=== PATIENT | female | born 1965 | race Caucasian/White ===

== ENCOUNTER → 2016-07-31 | Outpatient (CLI) | payer BC ==
[~2016-07-31] MED LIST: ATIVAN0.5 MG PO; BACTROBAN2% TP; CLARITIN10 MG PO; COMBIVENT1 ARO IH; CORTISPORIN 1%-10 M1 OT; DARVOCET N 1001 TAB PO; DAYPRO600 M1 PO; EES400 MG PO; HYDROCODONE BIT1 T11 PO; KEFLEX500 MG PO; LEVAQUIN750 M1 PO; MEDROL DOSEPAK4 MG PO; MOTRIN800 MG PO; PREDNISONE10 MG PO; ROBITUSSIN AC 110 ML PO; ULTRAM50 MG PO; VENTOLIN H0.09 MG/AC INH; ZITHROMAX Z PA250 MG PO
== END | disposition home or self-care (01) ==
LOC: US 02:23
DX: Z12.31 Encounter for screening mammogram for malignant neoplasm of breast (principal); R10.30 Lower abdominal pain, unspecified

== ENCOUNTER 2016-09-03 07:50 | Emergency (ER) | payer BC ==
[~2016-09-03] VITALS: Ht 162.5 cm; Wt 72.6 kg
[2016-09-03 08:26] LABS: BASO # 0.1 10*3/uL (0.0-0.1); BASO % 0.5 % (0.0-1.0); EOS % 0.3 % (1.0-4.0); HEMATOCRIT 49.7 % (37.0-47.0); LYMPH # 0.9 10*3/uL (1.3-4.4); LYMPH % 7.4 % (27.0-41.0); MEAN CELL VOLUME 99.2 fl (81.0-99.0); MEAN CORPUSCULAR HGB 33.9 pg (27.0-31.0); MEAN CORPUSCULAR HGB CONC 34.2 g/dl (33.0-37.0); MEAN PLATELET VOLUME 9.5 fl (9.6-12.3); MONO # 0.5 10*3/uL (0.1-1.0); MONO % 4.6 % (3.0-9.0); NEUT % 86.9 % (47.0-73.0); PLATELET COUNT AUTOMATED 245 10*3/uL (130-400); RED BLOOD COUNT 5.01 10*6/uL (4.10-5.10); RED CELL DISTRI WIDTH 12.1 % (0-14.5); WHITE BLOOD COUNT 11.5 10*3/uL (4.8-10.8)
[2016-09-03 08:29] LABS: BILIRUBIN NEGATIVE (NEGATIVE); BLOOD TRACE-INTACT (NEGATIVE); CLARITY SL CLOUDY (CLEAR); COLOR YELLOW (YELLOW); GLUCOSE NEGATIVE (NEGATIVE); KETONE 1+ (NEGATIVE); LEUKO ESTERASE NEGATIVE (NEGATIVE); NITRITE NEGATIVE (NEGATIVE); PH 5.5 (5.0-9.0); PROTEIN TRACE (NEGATIVE); SPECIFIC GRAVITY >= 1.030 (1.005-1.030)
[2016-09-03 08:41] LABS: ALBUMIN 4.2 gm/dl (3.1-4.5); ALKALINE PHOSPHATASE 61 U/L (45-117); BILIRUBIN, TOTAL 0.8 mg/dl (0.2-1.0); BUN 5 mg/dl (7-24); CARBON DIOXIDE 28 mmol/L (21-32); CHLORIDE 105 mmol/L (98-107); EST GLOM FILT AFRICAN AMERICAN > 60 ml/min; GLUCOSE 99 mg/dL (65-99); POTASSIUM 4.2 mmol/L (3.5-5.1); SGOT/AST 17 IU/L (3-35); SGPT/ALT 15 U/L (12-78); SODIUM 142 mmol/L (136-145); TOTAL PROTEIN 7.5 gm/dL (6.4-8.2)
[2016-09-03 09:07] VITALS: BP 136/96
[2016-09-03 09:11] LABS: BACTERIA 4+
[2016-09-03 09:12] LABS: URINE REFLEX COMMENT YES (NO)
[2016-09-03] MEDS ORDERED: MACROBID100 M1 PO (09:51)
[2016-09-04] MEDS ORDERED: NORCO 5-325 TA1 EACH PO (09:27)
== END 2016-09-03 10:00 | disposition home or self-care (01) ==
LOC: ED 07:50
PROVIDERS: Emergency Medicine
DX: N39.0 Urinary tract infection, site not specified (principal); F17.200 Nicotine dependence, unspecified, uncomplicated; Z88.0 Allergy status to penicillin

== ENCOUNTER 2016-09-04 05:26 | Emergency (ER) | payer BC ==
[~2016-09-04] VITALS: Ht 165.1 cm; Wt 59.0 kg
[~2016-09-04 05:26] MED LIST changes: +MACROBID100 M1 PO
[2016-09-04 06:19] LABS: BASO % 0.5 % (0.0-1.0); EOS % 0.6 % (1.0-4.0); HEMATOCRIT 43.7 % (37.0-47.0); LYMPH # 1.2 10*3/uL (1.3-4.4); LYMPH % 19.4 % (27.0-41.0); MEAN CELL VOLUME 100.7 fl (81.0-99.0); MEAN CORPUSCULAR HGB 34.6 pg (27.0-31.0); MEAN CORPUSCULAR HGB CONC 34.3 g/dl (33.0-37.0); MONO # 0.5 10*3/uL (0.1-1.0); MONO % 8.2 % (3.0-9.0); NEUT # 4.4 10*3/uL (2.3-7.9); NEUT % 71.1 % (47.0-73.0); PLATELET COUNT AUTOMATED 210 10*3/uL (130-400); RED BLOOD COUNT 4.34 10*6/uL (4.10-5.10); RED CELL DISTRI WIDTH 12.1 % (0-14.5); WHITE BLOOD COUNT 6.2 10*3/uL (4.8-10.8)
[2016-09-04 06:49] LABS: BUN 6 mg/dl (7-24); CARBON DIOXIDE 26 mmol/L (21-32); CHLORIDE 109 mmol/L (98-107); EST GLOM FILT AFRICAN AMERICAN > 60 ml/min; GLUCOSE 102 mg/dL (65-99); POTASSIUM 3.9 mmol/L (3.5-5.1); SODIUM 143 mmol/L (136-145)
[2016-09-04] MEDS ORDERED: NORCO 5-325 TA1 EACH PO (09:27)
[2016-09-04 09:44] VITALS: BP 142/70
== END 2016-09-04 10:24 | disposition home or self-care (01) ==
LOC: ED
PROVIDERS: Emergency Medicine Emergency Medical Services
DX: R10.30 Lower abdominal pain, unspecified (principal); Z88.0 Allergy status to penicillin

== ENCOUNTER 2016-10-06 03:43 | Inpatient (IN) | payer BC ==
[2016-10-01 08:47] LABS: BASO # 0.1 10*3/uL (0.0-0.1); BASO % 1.2 % (0.0-1.0); EOS # 0.1 10*3/uL (0.0-0.4); EOS % 2.7 % (1.0-4.0); HEMATOCRIT 48.4 % (37.0-47.0); LYMPH # 1.3 10*3/uL (1.3-4.4); LYMPH % 31.3 % (27.0-41.0); MEAN CELL VOLUME 97.4 fl (81.0-99.0); MEAN CORPUSCULAR HGB 34.2 pg (27.0-31.0); MEAN CORPUSCULAR HGB CONC 35.1 g/dl (33.0-37.0); MEAN PLATELET VOLUME 9.5 fl (9.6-12.3); MONO # 0.4 10*3/uL (0.1-1.0); NEUT # 2.3 10*3/uL (2.3-7.9); NEUT % 55.6 % (47.0-73.0); PLATELET COUNT AUTOMATED 225 10*3/uL (130-400); RED BLOOD COUNT 4.97 10*6/uL (4.10-5.10); RED CELL DISTRI WIDTH 11.7 % (0-14.5); WHITE BLOOD COUNT 4.1 10*3/uL (4.8-10.8)
[~2016-10-06] VITALS: Ht 162.6 cm; Wt 74.8 kg
[2016-10-06] VITALS (11 sets, daily range): BP systolic 113–162; BP diastolic 63–98
--- NOTE | ~2016-10-06 | O ---
[place], [place] OPERATIVE NOTE NAME: [id number] UNIT #: [id number] ROOM: [facility] [place] DOCTOR: NOLAN ALLEN MD BIRTHDATE: [birth year] DOS: 10/06/2016 PREOPERATIVE DIAGNOSES: Significant pelvic pain cyclic in nature consistent with dysmenorrhea, but the patient is amenorrheic status post an endometrial ablation. We suspect adenomyosis. POSTOPERATIVE DIAGNOSES: Significant pelvic pain cyclic in nature consistent with dysmenorrhea, but the patient is amenorrheic status post an endometrial ablation. We suspect adenomyosis. OPERATION: A[place]AH, BSO. SURGEON: Nolan Allen MD and Haim Ferrer DO ANESTHESIA: General. ESTIMATED BLOOD LOSS: About 100 mL. REPLACEMENTS: IV fluids, gentamicin, Cleocin, Ofirmev and Toradol. COMPLICATIONS: There were no complications. CONDITION: The patient's condition to recovery stable. OPERATIVE SUMMARY: The patient was taken to the operating room. In supine position, general anesthesia, endotracheal intubation, lithotomy position, prepped and draped in routine manner. Cervix was grasped with a tenaculum. A cervical manipulator placed and a Bean catheter placed to straight drain. Infraumbilical, suprapubic and right lower quadrant incisions were made. Under direct visualization, a 5 mm trocar sleeve and laparoscope were inserted followed by CO2 insufflation. Examination initially of the upper abdomen revealed the liver edge to be normal. Gallbladder was not visualized at this time. Appendix was also grossly normal as was the bowel and the gastric edge. The pelvis itself revealed the uterus to be somewhat very prominent at the cornual regions of the uterus, but otherwise grossly normal. There were several small fibroids noted. The tubes and ovaries were otherwise normal. Using LigaSure device, we then freed the tubes and ovaries from the infundibulopelvic connections and then created round ligament pedicle. We took our dissection on further down to a point just above the uterine vasculature. Once this was completed, we removed our instrumentation, turned our attention vaginally where we injected the cervix in a circumferential manner, made a circumferential incision and then displaced the bladder anteriorly and the rectum posteriorly. We entered the posterior cul-de-sac and created uterosacral and cardinal ligament pedicles using 0 chromic sutures for securing these pedicles. Once that was completed, we used the LigaSure device, taking successive pedicles bilaterally and then when we had gotten to a certain point, we entered the anterior cul-de-sac without complication and completed our pedicles using the LigaSure device. The uterus, cervix, tubes and ovaries were removed intact. We examined all pedicle lines and noted good hemostasis and after noting a stable sponge and instrument count, we reperitonealized using 2-0 Vicryl in a [place], [place] OPERATIVE NOTE NAME: REBECA AMBROSE UNIT #: [id number] ROOM: [facility] [place] DOCTOR: NOLAN ALLEN MD BIRTHDATE: [birth year] pursestring manner. Once this was completed, we then closed the vaginal cuff with a series of interrupted [id number] 0 Vicryl sutures. We then reinsufflated the abdomen, reinserted our instruments and our hysteroscope and examined her sidewalls and noted them to be hemostatic and ureters peristalsing normally. The vaginal cuff was intact and the uterosacral ligaments had been plicated very nicely and giving her extra support of the vaginal cuff. There were no other atypicalities noted and at that point, we removed the 2 lower abdominal trocar sleeves and instrumentation and noting good hemostasis and abdominal wall. We allowed CO2 to escape and removed the infraumbilical trocar sleeve and laparoscope. Each incision was closed with subcuticular 3-0 Monocryl suture, Steri-Strips and dressings placed. We then cleaned, took the patient out of lithotomy position, awakened and extubated, and transferred to recovery in satisfactory condition having had clear and adequate urine output throughout the case. Stable sponge and instrument count, good hemostasis, and stable vital signs. NOLAN ALLEN MD CM:OPRECORD:OPERATIVE NOTE [id number] FERCHO ALLEN MD 10/06/16 1137 interface
--- NOTE | ~2016-10-06 | WRIGHTHP ---
[place], [place] PATIENT HISTORY AND PHYSICAL EXAM NAME: REBECA AMBROSE [facility] #: [id number] UNIT #: [id number] ROOM: DOCTOR: NOLAN ALLEN MD BIRTHDATE: [birth year] DOS: 10/06/2016 HISTORY OF PRESENT ILLNESS: This patient is a pleasant 51-year-old white female, 2, para 2, status post tubal ligation, who had NovaSure endometrial ablation successfully performed in 02/2015. She had complete amenorrhea thereafter. She followed up in the office in 08/2015, still having complete amenorrhea, but beginning to have some intermittent significant what appeared to be cyclic dysmenorrhea and what would have been described as intermenstrual pain. This has led to several trips to the ER as well as primary care and has on some occasions been significant enough to require narcotics. This has been very intermittent in its onset. The patient was then seen for discussion on 08/11/2016 having just had a pelvic ultrasound, which was essentially normal. FSH was borderline at 24, E2 at 85 and TSH normal. She was having some mild intermittent perimenopausal complaints. At that time, we discussed the intermittent dysmenorrhea and the intermittent pain, and also the perimenopausal timeframe and felt that perhaps menopause would resolve these symptoms and she would not have to have surgery even if it was due presumably to adenomyosis. I say presumably because there was no evidence of any endometrial fluid collection or atypicality noted on recent ultrasound in late winter. The patient stated agreement to this situation and was advised to let us know should she feel like she needed to proceed with surgery. She subsequently had been to the Emergency Room again and had called the office and wanted to schedule a surgery and we had actually at her last visit to the ER just a couple of weeks ago, tried to move her surgery up 2 weeks, but she was unable to do so. She has been scheduled for [facility] BSO on 10/06/2016 with the risks, benefits, indications, potential complications, and alternatives thoroughly reviewed, understanding stated and consent signed. PAST MEDICAL HISTORY: Besides what I just mentioned revealed 2 pregnancies, 2 vaginal deliveries. She has had tubal ligation. Last Pap was negative in 2014 and last mammogram within normal limits in 07/2016. SOCIAL HISTORY: The patient does smoke a pack a day and does drink socially. ALLERGIES: She states an allergy to PENICILLIN. MEDICATIONS: She takes only Aleve or ibuprofen as needed. PAST SURGICAL HISTORY: Includes besides tubal ligation and the endometrial ablation and a tonsillectomy. Does also have a history of some left shoulder pain, but does not list any diagnosis in the chart. REVIEW OF SYSTEMS: Otherwise stable. FAMILY HISTORY: Reveals mother to be from lung cancer, maternal grandfather with gastric CA, one brother with a seizure disorder. PHYSICAL EXAMINATION: [place], [place] PATIENT HISTORY AND PHYSICAL EXAM NAME: REBECA AMBROSE [facility] #: [id number] UNIT #: [id number] ROOM: DOCTOR: NOLAN ALLEN MD BIRTHDATE: [birth year] GENERAL: Reveals a pleasant white female and she is in no significant distress at this time. She is 5 feet 4 inches, 165 pounds, BMI is 28.3. VITAL SIGNS: Blood pressure is 116/70. She is in no significant distress. HEENT: Grossly intact. NECK: Grossly intact. LUNGS: Grossly intact. CARDIAC: Grossly intact. BREASTS: Grossly intact. ABDOMEN: Grossly intact. EXTREMITIES: Grossly intact. NEUROLOGIC: Grossly intact. GENITOURINARY: External genitalia, vagina, cervix normal. Uterus is anteverted and anteflexed, somewhat tender, but mobile, normal in size and configuration and this was confirmed by ultrasound. Adnexa were negative. RECTAL: Negative. Stool heme test negative. ASSESSMENT: Chronic intermittent very intense pelvic pain, but with amenorrhea, status post ablation about 2 years ago. Adenomyosis is suspected. This discomfort is disabling enough that the patient has been to the Emergency Room or her primary care doctor's office on several occasions and has been intense enough to require narcotics. To that end, the patient will undergo [facility] BSO on 10/06/2016. NOLAN ALLEN MD CM:HISPHYS:PATIENT HISTORY AND PHYSICAL EXAMINATION [id number] FERCHO ALLNE MD 10/03/16 0714 interface
--- NOTE | ~2016-10-06 | DS ---
[place], [place] DISCHARGE SUMMARY NAME: REBECA AMBROSE [facility] #: [id number] UNIT #: [id number] ROOM: 501 DOCTOR: NOLAN ALLEN MD BIRTHDATE: [birth year] DOS: 10/07/2016 POSTOP DAY #1 ROUNDING NOTE/DISCHARGE SUMMARY DATE OF ADMISSION: 10/06/2016 DATE OF DISCHARGE: 10/07/2016 HOSPITAL COURSE: This very pleasant 51-year-old white female was admitted on 10/06/2016 with a history of being status post endometrial ablation and tubal ligation, but having significant intermittent dysmenorrhea and intermittent significant pelvic pain. The patient also had small uterine fibroids. We were also considering a possibility of adenomyosis. The patient underwent LAVH, BSO without complication on 10/06/2016 with EBL less than 100 mL. Postoperatively, the patient has done very well with resumption of bodily functions, good ambulation, toleration of regular diet, only minimal vaginal bleeding, stable vital signs, stable cardiac, pulmonary, abdominal, extremity exam as well as her IV site is intact. The patient and I reviewed her operative photos as well as the operative procedures and understanding was stated. I did review with the patient and her the discharge instructions as well and she stated understanding. She will increase diet and activity as tolerated, contact us should she have any complications as outlined in the discharge instructions. Utilize Percocet 5/325 mg take one half to one p.o. q. 4-6 hours on a p.r.n. basis, #20 given without refill. She also uses Motrin 800 mg q. 6-8 hours p.r.n., finds excellent relief with this as well. Again, the patient and her state understanding to the information provided and she was discharged in satisfactory condition on 10/07/2016. NOLAN ALLEN MD CM:DISCHARG [id number] NOLAN ALLEN MD 10/07/16 1313 interface
[~2016-10-06 03:43] MED LIST changes: +IBU800 M1 PO; +NORCO 5-325 TA1 EACH PO
[2016-10-07] VITALS: BP 108/58
[2016-10-07 08:00] VITALS: BP 115/70
== END 2016-10-07 07:50 | disposition home or self-care (01) | DRG 743 ==
LOC: SDC 03:43 → 5E 08:19 → SDC 09:30 → 5E 09:36
PROVIDERS: Obstetrics & Gynecology
PROC: 0UT2FZZ Resection of Bilateral Ovaries, Via Natural or Artificial Opening With Percutaneous Endoscopic Assistance (ICD-10-PCS; principal; 2016-10-06)
PROC: 0UT7FZZ Resection of Bilateral Fallopian Tubes, Via Natural or Artificial Opening With Percutaneous Endoscopic Assistance (ICD-10-PCS; principal; 2016-10-06)
PROC: 0UT9FZZ Resection of Uterus, Via Natural or Artificial Opening With Percutaneous Endoscopic Assistance (ICD-10-PCS; principal; 2016-10-06)
DX: D25.9 Leiomyoma of uterus, unspecified (principal); N80.0 Endometriosis of uterus

== ENCOUNTER 2017-01-04 10:06 | Emergency (ER) | payer OTHER ==
[~2017-01-04] VITALS: Wt 72.6 kg
[2017-01-04 10:13] VITALS: BP 166/88
[2017-01-04] MEDS ORDERED: PREDNISONE10 MG PO (10:25)
== END 2017-01-04 10:32 | disposition home or self-care (01) ==
LOC: ED 10:06
DX: L30.9 Dermatitis, unspecified (principal); R03.0 Elevated blood-pressure reading, without diagnosis of hypertension; F17.200 Nicotine dependence, unspecified, uncomplicated; Z88.0 Allergy status to penicillin

== ENCOUNTER 2017-03-08 11:32 | Inpatient (IN) | payer OTHER ==
[2017-03-08] VITALS (8 sets, daily range): BP systolic 125–147; BP diastolic 70–89
[~2017-03-08] VITALS: Ht 162.6 cm; Wt 73.9 kg
--- NOTE | ~2017-03-08 | WRIGHTHP ---
[place], [place] PATIENT HISTORY AND PHYSICAL EXAM NAME: REBECA AMBROSE [facility] #: [id number] UNIT #: [id number] ROOM: 529 DOCTOR: FERCHO CHAVIS MD BIRTHDATE: [birth year] DOS: 03/08/2017 HISTORY OF PRESENT ILLNESS: The patient is a 51-year-old female with a past medical history of total hysterectomy, nicotine smoke dependence, 30 pack years. The patient presented to the Emergency Department with mild substernal pain starting last night, but this morning when she woke up around 8:00, she woke up with sharp chest pain going into her back and she felt some tingling in her hands along with shortness of breath and also felt like somebody was sitting on her chest. The patient came to the Emergency Department at around 11:00 a.m., 3 hours later and her pains were relieved with treatment. Presently, she is asymptomatic and interested in stopping to smoke cigarettes. In the ER, the patient's cardiac enzymes were negative. She was hypoxemic, so she was started on oxygen. The patient is asymptomatic after admission. Her chest x-ray showed no acute process. REVIEW OF SYSTEMS: LUNGS: Increasing shortness of breath, slight wheeze. CARDIOVASCULAR SYSTEM: Complains of chest pain and pressure at home. GASTROINTESTINAL: No nausea, vomiting, diarrhea or constipation. HOME MEDICATIONS: Ibuprofen p.r.n. ALLERGIES: Known allergies to PENICILLIN. FAMILY HISTORY: Noncontributory. SOCIAL HISTORY: Smokes less than a pack of cigarettes a day for past 30 years. Denies any alcohol or drug abuse. PHYSICAL EXAMINATION: GENERAL: Alert and oriented x 3, in no visible distress, wearing oxygen. LUNGS: On auscultation, she has mild inspiratory and expiratory wheezing. LABORATORY DATA: Chest x-ray without acute abnormality. CBC was normal except for hemoglobin elevated to 16.8. Normal serum electrolytes and cardiac enzymes so far. IMPRESSION: 1. The patient with chest pains from uncertain etiology. I am consulting Dr. Isbell to see her. Cardiac enzymes have been negative and patient is chest pain free since admission. The patient kept on aspirin and p.r.n. sublingual nitroglycerins. 2. Nicotine smoke dependence. The patient started on nicotine inhaler and she would like to stop smoking cigarettes. 3. ____ wheezing with acute bronchitis, to be treated with bronchodilators and inhaled corticosteroids. 4. The patient had polycythemia secondary to smoking cigarettes. [place], [place] PATIENT HISTORY AND PHYSICAL EXAM NAME: REBECA AMBROSE UNIT #: [id number] ROOM: 529 DOCTOR: FERCHO CHAVIS MD BIRTHDATE: [birth year] FERCHO CHAVIS MD CM:HISPHYS:PATIENT HISTORY AND PHYSICAL EXAMINATION [id number] [id number] FERCHO CHAVIS MD 03/08/17 1724 interface
--- NOTE | ~2017-03-08 | DS ---
[place], [place] DISCHARGE SUMMARY NAME: REBECA AMBROSE UNIT #: [id number] ROOM: 529 DOCTOR: FERCHO CHAVIS MD BIRTHDATE: [birth year] DOS: 03/09/2017 DISCHARGE DIAGNOSES: 1. Chest pain, musculoskeletal. Cardiac enzymes and cardiac stress test were negative. 2. Acute exacerbation of chronic obstructive pulmonary disease. 3. Severe generalized anxiety disorder. 4. Probable alcohol dependence. The patient drinks about 12 cans of beer over the weekend. 5. The patient had polycythemia related to cigarette smoke. HOSPITAL COURSE: The patient presented to the Emergency Department with chest tightness and pain. The pain was substernal, radiating into the back and in the morning, she felt like somebody was sitting on her chest. The patient was admitted and ruled out for acute WA with serial cardiac enzymes and finally taken for a cardiac stress test by Dr. Isbell and since the test is normal, he has cleared the patient for discharge to home today. Acute exacerbation of COPD with some chest tightness, slight inspiratory and expiratory wheezing. I walked the patient in the hallways and pulse ox today above 90% and I am discharging her to home on corticosteroids, bronchodilator and antibiotic and to see me in the office tomorrow. Severe generalized anxiety disorder. Polycythemia secondary to smoking cigarettes. Suspected alcohol dependence. The patient was taking 12 cans of beer over the weekend and she had mild symptoms of alcohol withdrawal including tremors and anxiety, for which I started on Ativan and thiamine. LABORATORY DATA: Negative cardiac stress test, troponin I levels were normal, normal serum electrolytes, bilirubin, liver enzymes. Hemoglobin elevated to 16.8. No leukocytosis. DISCHARGE MANAGEMENT: Nicotine inhaler p.r.n., not to exceed more than 16 cartridges in a day, thiamine 100 mg daily, Breo inhaler once a day, ibuprofen 600 mg t.i.d. p.r.n. Follow up at the office. [place], [place] DISCHARGE SUMMARY NAME: REBECA AMBROSE UNIT #: [id number] ROOM: 529 DOCTOR: FERCHO CHAVIS MD BIRTHDATE: [birth year] FERCHO CHAVIS MD CM:JIA [id number] FERCHO CHAVIS MD 03/09/172200 interface
--- NOTE | ~2017-03-08 | CON ---
[place], [place] REPORT OF CONSULTATION [id number] UNIT #: [id number] ROOM: 529 DOCTOR: JYOTSNA LR MD BIRTHDATE: [birth year] DOS: 03/08/2017 CHIEF COMPLAINT: Chest pain. HISTORY OF PRESENT ILLNESS: The patient is a 51-year-old woman who has no previous history of heart disease. She was in her normal state of health until last evening. While at rest, she had some mild substernal chest discomfort which resolved spontaneously. She was able to sleep through the night, but this morning, she developed a sharp pain in the center of her chest. She stated that the pain radiated into her back and shoulders as well as into her right arm. She felt shaky. She did note that the pain worsened with a deep breath or twisting. She did feel somewhat short of breath and in the Emergency Room, she was noted to be hypoxemic. She was placed on supplemental oxygen and felt better. Since then her pains have resolved. The patient denies any previous history of similar pains or heart disease. She has not been sedentary recently and specifically denies any recent surgical procedures. The patient does smoke one half to 1 pack of cigarettes a day, but has no other risk factors for coronary artery disease. PAST MEDICAL HISTORY: Includes: 1. Cigarette abuse one half to 1 pack per day. 2. Total abdominal hysterectomy 09/2016. FAMILY HISTORY: Negative for early coronary artery disease. HOME MEDICATIONS: Ibuprofen p.r.n. She is on no prescribed medications. ALLERGIES: PENICILLIN, BUT NO OTHER ALLERGIES. REVIEW OF SYSTEMS: The patient denies diplopia, loss of vision, lightheadedness, syncope or focal weakness. She denies fevers, chills, sweats or recent weight change. She denies nausea or vomiting. She denies hemoptysis or hematemesis. She does admit to pain when she takes a deep breath as well as coughing, but denies that she is producing any sputum and specifically does not have blood-tinged sputum. She denies any change in bowel or bladder habits. Denies blood in her urine or stools. She denies tarry stools. She denies any skin rashes and denies hot or swollen joints. She denies any peripheral edema. She has never had a blood clot in her legs and denies any ankle edema or calf pain. She denies any hot or swollen joints and denies any skin rashes. She denies polyuria or polydipsia. She does not have any heat or cold intolerance. The remainder of the review of systems is negative except as noted above. 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 She does smoke one half to 1 pack of cigarettes a day. She does not drink to excess and denies any use of illegal drugs. PHYSICAL EXAMINATION: [place], [place] REPORT OF CONSULTATION NAME: REBECA AMBROSE UNIT #: [id number] ROOM: 529 DOCTOR: JYOTSNA LR MD BIRTHDATE: [birth year] GENERAL: The patient is a well-nourished white female who is awake, alert and oriented. VITAL SIGNS: Pulse is 85 and regular, blood pressure 125/83. She is afebrile. She weighs 73.9 kg and has a body mass index of 28. HEENT: Normocephalic, atraumatic. Extraocular muscles are intact. Sclerae are clear. Pupils are round and react to light. The oral mucosa is moist. Tongue is midline. NECK: Supple. She has no jugular distention. Carotids are full. She has no bruit. She has no neck or supraclavicular masses and no thyromegaly. LUNGS: Respirations are unlabored. Chest has decreased breath sounds at the bases, but no wheezes or rales. She has no presacral edema or chest wall tenderness. CARDIOVASCULAR: Her heart has a regular rhythm. She has a fourth heart sound, but no third heart sound or murmur. The PMI is not displaced. There is no precordial heave, lift or thrill. I could not reproduce her pain by palpation of her anterior chest. ABDOMEN: Soft and normally active without masses, organomegaly or bruits. EXTREMITIES: Showed no edema. Peripheral pulses are palpable in the feet. LABORATORY DATA: I reviewed her electrocardiogram. It showed sinus rhythm and was a normal tracing. Hemoglobin is 16.8 with hematocrit 47.2. There 7100 white cells and 286,000 platelets. Electrolytes are normal with a BUN and creatinine of 14.61. Troponin has been negative x 3. IMPRESSIONS: Atypical/pleuritic chest pain with hypoxemia. Most likely, this represents acute tracheobronchitis. Pulmonary embolism seems to be very much less likely, especially since the patient is not sedentary and has not had a recent surgical procedure. Nonetheless, her description of the pain suggests the possibility of a pleuritic process. We will be getting a D-dimer and if it is elevated, we will have her undergo a CT angiogram of the chest this evening. In the meantime, she will be treated with therapeutic Lovenox. She has no problems arise, we will plan on doing an exercise myocardial perfusion study in the morning. Further recommendations will depend upon the results of her stress test. We thank Dr. Pierre for asking our advice regarding the patient's care. [place], [place] REPORT OF CONSULTATION NAME: REBECA AMBROSE UNIT #: [id number] ROOM: 529 DOCTOR: JYOTSNA LR MD BIRTHDATE: [birth year] JYOTSNA LR MD CM:CONSTR:REPORT OF CONSULTATION 14 03/08/172103 interface FERCHO PIERRE MD
--- NOTE | ~2017-03-08 | PR ---
[place], [place] PROGRESS NOTE NAME: REBECA AMBROSE [facility] #: [id number] UNIT #: [id number] ROOM: 529 DOCTOR: JYOTSNA LR MD BIRTHDATE: [birth year] DOS: 03/09/2017 SUBJECTIVE: The patient was seen in the cardiology department today, 03/09/2017 prior to her doing a stress test. She states that she continues to have some chest tightness, but it has not changed much since admission. She is breathing normally. Her electrocardiogram shows no acute changes and the troponin levels have been normal. A D-dimer last evening was within normal limits as well. PHYSICAL EXAMINATION: VITAL SIGNS: Today, her pulse is 80 and regular, blood pressure 136/80. She is afebrile. She weighs 73.9 kg and has a body mass index of 28. NECK: Supple. She has no jugular venous distention. CHEST: Clear. HEART: Has a regular rhythm with an S4 gallop. EXTREMITIES: Showed no edema. IMPRESSION: Atypical chest pain. PLAN: Most likely this does represent an acute tracheobronchitis. Pulmonary embolism was essentially ruled out by her normal D-dimer level as well as the fact that she is an active person to begin with. We will do an exercise stress myocardial perfusion study. If that is normal, then no other cardiac workup would be indicated at this time. We thank Dr. Pierre for asking our advice regarding her assessment and care. JYOTSNA LR MD CM:PNTRANS [id number] JYOTSNA LR MD 03/09/17 1605 interface
[2017-03-08 11:51] LABS: BASO # 0.1 10*3/uL (0.0-0.1); BASO % 0.7 % (0.0-1.0); EOS # 0.1 10*3/uL (0.0-0.4); EOS % 0.7 % (1.0-4.0); HEMATOCRIT 47.2 % (37.0-47.0); HEMOGLOBIN 16.8 g/dl (12.0-16.0); LYMPH # 1.5 10*3/uL (1.3-4.4); LYMPH % 20.8 % (27.0-41.0); MEAN CELL VOLUME 96.3 fl (81.0-99.0); MEAN CORPUSCULAR HGB 34.3 pg (27.0-31.0); MEAN CORPUSCULAR HGB CONC 35.6 g/dl (33.0-37.0); MEAN PLATELET VOLUME 10.4 fl (9.6-12.3); MONO # 0.5 10*3/uL (0.1-1.0); MONO % 7.2 % (3.0-9.0); NEUT % 70.3 % (47.0-73.0); PLATELET COUNT AUTOMATED 286 10*3/uL (130-400); RED CELL DISTRI WIDTH 12.2 % (0-14.5); WHITE BLOOD COUNT 7.1 10*3/uL (4.8-10.8)
[2017-03-08 12:22] LABS: ACT PARTIAL THROMBO TIME 24.7 SECONDS (20.8-31.5)
[2017-03-08 12:27] LABS: ALBUMIN 3.9 gm/dl (3.1-4.5); ALKALINE PHOSPHATASE 85 U/L (45-117); BUN 14 mg/dl (7-24); CHLORIDE 108 mmol/L (98-107); CREATININE 0.61 mg/dL (0.55-1.02); MAGNESIUM 1.9 mg/dL (1.5-2.1); SGOT/AST 19 IU/L (3-35); SGPT/ALT 23 U/L (12-78); SODIUM 143 mmol/L (136-145); TOTAL PROTEIN 6.9 gm/dL (6.4-8.2)
[2017-03-08 12:31] LABS: TROPONIN I < 0.015 ng/ml (<0.045)
[2017-03-08 12:32] LABS: POTASSIUM 4.4 mmol/L (3.5-5.1)
--- NOTE | 2017-03-08 14:20 | NUR ---
A 51, admitted to , under the services of Dr. PARTHA FLOWER,FERCHO Dong with a diagnosis of CHEST PAIN . Chief complaint is CHEST PAIN , SOB. Patient arrived via stretcher from ER. Monitor applied. Initial assessment completed. Vital signs taken and recorded. DR. PARTHA FLOWER,FERCHO Dong notified of admission to the unit. Orders received. See assessment for past medical history, medications and allergies. Patient and/or family oriented to unit. [facility] visitation policy reviewed. Clothing/patient valuable form completed. ELENO IZQUIERDO
--- NOTE | 2017-03-08 16:00 | NUR ---
DR LEVINE HERE TO SEE PT
--- NOTE | 2017-03-08 16:42 | NUR ---
SPOKE WITH DR LR REGARDING CONSULT
[2017-03-09] VITALS: BP 119/76
--- NOTE | 2017-03-09 07:51 | NUR ---
PT RESTING IN BED. NO DISTRESS NOTED. PT CONITNUES TO C/O CHEST TIGHTNESS, PRESSURE. CALL LIGHT WITHIN REACH
[2017-03-09 08:00] VITALS: BP 136/80
--- NOTE | 2017-03-09 10:30 | NUR ---
INFORMED CONSENT SIGNED FOR CARDIOLYTE STRESS TEST WITH DR. LR. RESTING EKG NSR, HR 64, BP 115/68. COMPLETED 7:40 OF A STANDARD MAIK PROTOCOL COMPLETING 1:40 STAGE III, 3.4MPH/14% GRADE. PEAK HEART RATE OF 159 ACHIEVED WHICH IS 92% PREDICUTED MAXIMUM AND A PEAK BP OF 194/88. TEST TERMINATED D/T FATIGUE. HAS A GOOD EXERCISE TOLERANCE. NO ARRHYTHMIAS NOTED, NON DIAGNOSTIC ST CHAGNES NOTED. LAST RECOVERY HR 90, BP 128/90. WAITING NUCLEAR SCANNING IN STABLE CONDITION.
[2017-03-09 12:00] VITALS: BP 139/87
[2017-03-09 16:00] VITALS: BP 113/66
--- NOTE | 2017-03-09 16:30 | NUR ---
PT RESTING IN BED. NO DISTRESS NOTED. CALL LIGHT WITHIN REACH
[2017-03-09] MEDS ORDERED: NATURE'S BLEND100 M2 PO (18:21)
[2017-03-09] MEDS ORDERED: NICOTROL10 MG INH (18:21)
[2017-03-09] MEDS ORDERED: AZITHROMYCIN500 M1 PO (18:21)
[2017-03-09] MEDS ORDERED: BREO ELLIPTA 21 EACH INH (18:21)
[2017-03-09] MEDS ORDERED: MEDROL DOSEPAK4 MG PO (18:21)
--- NOTE | 2017-03-09 18:25 | NUR ---
PT WALKED HALLWAYS WITH RN, PT ON ROOM AIR, PULSE OX DROPPED TO 89% THEN BACK UP TO 93%. PT SOB, LIGHT HEADED. DR CHAVIS NOTIFIED
--- NOTE | 2017-03-09 18:45 | NUR ---
Discharge instructions reviewed with patient/family. Patient receptive and verbalizes understanding. Follow-up care arranged. Written instructions given to patient/family. ELENO IZQUIERDO
== END 2017-03-09 18:45 | disposition home or self-care (01) | DRG 313 ==
LOC: ED 11:32 → 5E 12:57 → EDHOLD 12:57 → 5E 13:05
PROVIDERS: Emergency Medicine; ADMIT Internal Medicine
PROC: 3E033HZ Introduction of Radioactive Substance into Peripheral Vein, Percutaneous Approach (ICD-10-PCS; principal; 2017-03-09)
PROC: 4A02XM4 Measurement of Cardiac Total Activity, External Approach (ICD-10-PCS; principal; 2017-03-09)
DX: R07.89 Other chest pain (principal); D75.1 Secondary polycythemia; J44.0 Chronic obstructive pulmonary disease with (acute) lower respiratory infection; J44.1 Chronic obstructive pulmonary disease with (acute) exacerbation; F41.1 Generalized anxiety disorder; F10.20 Alcohol dependence, uncomplicated; Y90.9 Presence of alcohol in blood, level not specified; F17.210 Nicotine dependence, cigarettes, uncomplicated; J20.9 Acute bronchitis, unspecified; R09.02 Hypoxemia; Z88.0 Allergy status to penicillin; Z79.1 Long term (current) use of non-steroidal anti-inflammatories (NSAID); Z79.899 Other long term (current) drug therapy; Z90.710 Acquired absence of both cervix and uterus

== ENCOUNTER → 2019-11-11 | Outpatient (CLI) | payer BC ==
[~2019-11-11] MED LIST changes: +AEROECLIPSE II1 EACH MC; +ALBUTEROL2.5 MG/0.5 INH; +AZITHROMYCIN500 M1 PO; +BREO ELLIPTA 21 EACH INH; +DOXYCYCLINE100 M3 PO; +Ipratropium Brom3 ML INH; +NAPROSYN500 MG PO; +NATURE'S BLEND100 M2 PO; +NICOTROL10 MG INH; +PREDNISONE50 MG PO; +ROBAXIN500 M1 PO
== END | disposition home or self-care (01) ==
LOC: COVID19 00:36
DX: Z03.818 Encounter for observation for suspected exposure to other biological agents ruled out (principal)

== ENCOUNTER 2020-07-01 09:48 | Emergency (ER) | payer BC ==
[~2020-07-01] VITALS: Wt 74.4 kg
[2020-07-01 09:53] VITALS: BP 150/86
[2020-07-01 10:23] LABS: BASO % 0.4 % (0.0-1.0); EOS # 0.1 10*3/uL (0.0-0.4); HEMATOCRIT 47.9 % (37.0-47.0); LYMPH # 0.9 10*3/uL (1.3-4.4); LYMPH % 9.6 % (27.0-41.0); MEAN CELL VOLUME 97.2 fl (81.0-99.0); MEAN CORPUSCULAR HGB 32.7 pg (27.0-31.0); MEAN CORPUSCULAR HGB CONC 33.6 g/dl (33.0-37.0); MEAN PLATELET VOLUME 9.5 fl (9.6-12.3); MONO # 0.6 10*3/uL (0.1-1.0); NEUT # 7.3 10*3/uL (2.3-7.9); NEUT % 81.7 % (47.0-73.0); PLATELET COUNT AUTOMATED 322 10*3/uL (130-400); RED BLOOD COUNT 4.93 10*6/uL (4.10-5.10); RED CELL DISTRI WIDTH 11.8 % (0-14.5)
[2020-07-01 10:40] LABS: ALBUMIN 3.5 gm/dl (3.1-4.5); ALKALINE PHOSPHATASE 117 U/L (45-117); BUN 7 mg/dl (7-24); CHLORIDE 106 mmol/L (98-107); CREATININE 0.56 mg/dL (0.55-1.02); SGOT/AST 10 IU/L (3-35); SGPT/ALT 19 U/L (12-78); SODIUM 138 mmol/L (136-145); TOTAL PROTEIN 7.8 gm/dL (6.4-8.2)
[2020-07-01 10:41] LABS: TROPONIN I < 0.015 ng/ml (<0.045)
[2020-07-01] MEDS ORDERED: AVPAK AZITHROM250 MG PO (13:25)
[2020-07-01] MEDS ORDERED: OMNICEF300 MG PO (13:25)
== END 2020-07-01 13:29 | disposition home or self-care (01) ==
LOC: ED 09:48
PROVIDERS: Nurse Practitioner Family
DX: J18.9 Pneumonia, unspecified organism (principal); R91.8 Other nonspecific abnormal finding of lung field; Z88.0 Allergy status to penicillin; Z79.899 Other long term (current) drug therapy; Z98.51 Tubal ligation status

== ENCOUNTER → 2020-08-31 | Outpatient (CLI) | payer BC ==
[~2020-08-31] MED LIST changes: +AVPAK AZITHROM250 MG PO; +OMNICEF300 MG PO
[2020-08-31 10:37] LABS: BASO % 0.6 % (0.0-1.0); EOS % 0.4 % (1.0-4.0); HEMATOCRIT 49.3 % (37.0-47.0); LYMPH # 0.9 10*3/uL (1.3-4.4); LYMPH % 16.3 % (27.0-41.0); MEAN CELL VOLUME 97.6 fl (81.0-99.0); MEAN CORPUSCULAR HGB 32.9 pg (27.0-31.0); MEAN CORPUSCULAR HGB CONC 33.7 g/dl (33.0-37.0); MEAN PLATELET VOLUME 9.7 fl (9.6-12.3); MONO # 0.5 10*3/uL (0.1-1.0); MONO % 8.6 % (3.0-9.0); NEUT % 73.9 % (47.0-73.0); PLATELET COUNT AUTOMATED 257 10*3/uL (130-400); RED BLOOD COUNT 5.05 10*6/uL (4.10-5.10); RED CELL DISTRI WIDTH 12.6 % (0-14.5); WHITE BLOOD COUNT 5.3 10*3/uL (4.8-10.8)
[2020-08-31 11:16] LABS: ALBUMIN 4.3 gm/dl (3.1-4.5); ALKALINE PHOSPHATASE 95 U/L (45-117); BUN 11 mg/dl (7-24); CHLORIDE 109 mmol/L (98-107); CHOLESTEROL 238 mg/dL (<200); CREATININE 0.65 mg/dL (0.55-1.02); FREE T4 0.73 ng/dl (0.76-1.46); HDL CHOLESTEROL 113 mg/dl (40-60); LDL CHOLESTEROL 115 mg/dL (9-159); POTASSIUM 4.1 mmol/L (3.5-5.1); SGOT/AST 15 IU/L (3-35); SGPT/ALT 21 U/L (12-78); SODIUM 140 mmol/L (136-145); TRIGLYCERIDES 48 mg/dl (<150); VLDL CHOLESTEROL 10 mg/dL (6-40)
[2020-08-31 11:21] LABS: THYROID STIM HORMONE (HS) 0.814 uIU/ml (0.358-4.75)
[2020-08-31 11:22] LABS: VITAMIN D, 25-HYDROXY 27.3 ng/mL (30-100)
== END | disposition home or self-care (01) ==
LOC: LAB 10:19 → CT 11:00
PROVIDERS: Internal Medicine; ATTEND Internal Medicine Critical Care Medicine
DX: Z00.01 Encounter for general adult medical examination with abnormal findings (principal); R91.8 Other nonspecific abnormal finding of lung field; E55.9 Vitamin D deficiency, unspecified; Z13.220 Encounter for screening for lipoid disorders; Z13.21 Encounter for screening for nutritional disorder; Z13.1 Encounter for screening for diabetes mellitus

== ENCOUNTER 2021-01-07 07:50 | Emergency (ER) | payer BC ==
[~2021-01-07] VITALS: Ht 162.5 cm; Wt 72.6 kg
[2021-01-07 07:58] VITALS: BP 150/91
[2021-01-07 08:42] LABS: BASO % 0.5 % (0.0-1.0); EOS # 0.1 10*3/uL (0.0-0.4); EOS % 0.7 % (1.0-4.0); HEMATOCRIT 47.1 % (37.0-47.0); LYMPH # 1.1 10*3/uL (1.3-4.4); MEAN CELL VOLUME 97.3 fl (81.0-99.0); MEAN CORPUSCULAR HGB 33.9 pg (27.0-31.0); MEAN CORPUSCULAR HGB CONC 34.8 g/dl (33.0-37.0); MONO # 0.5 10*3/uL (0.1-1.0); MONO % 6.3 % (3.0-9.0); NEUT # 5.7 10*3/uL (2.3-7.9); NEUT % 77.2 % (47.0-73.0); PLATELET COUNT AUTOMATED 247 10*3/uL (130-400); RED BLOOD COUNT 4.84 10*6/uL (4.10-5.10); RED CELL DISTRI WIDTH 12.8 % (0-14.5); WHITE BLOOD COUNT 7.4 10*3/uL (4.8-10.8)
[2021-01-07 08:57] LABS: ALBUMIN 4.3 gm/dl (3.1-4.5); ALKALINE PHOSPHATASE 98 U/L (45-117); BUN 8 mg/dl (7-24); CHLORIDE 108 mmol/L (98-107); CREATININE 0.45 mg/dL (0.55-1.02); SGOT/AST 20 IU/L (3-35); SGPT/ALT 27 U/L (12-78); SODIUM 139 mmol/L (136-145); TOTAL PROTEIN 7.4 gm/dL (6.4-8.2)
[2021-01-07 08:59] LABS: TROPONIN I < 0.015 ng/ml (<0.045)
== END 2021-01-07 11:34 | disposition left against medical advice (07) ==
LOC: ED 07:50 → EDHOLD 11:03 → ED 11:03
PROVIDERS: Emergency Medicine
DX: R07.9 Chest pain, unspecified (principal); E78.5 Hyperlipidemia, unspecified; F17.200 Nicotine dependence, unspecified, uncomplicated; Z88.0 Allergy status to penicillin

== ENCOUNTER 2022-07-01 07:05 | Emergency (ER) | payer BC ==
[~2022-07-01] VITALS: Ht 162.5 cm; Wt 65.8 kg
[2022-07-01 07:31] LABS: BASO # 0.1 10*3/uL (0.0-0.1); EOS # 0.1 10*3/uL (0.0-0.4); EOS % 1.4 % (1.0-4.0); HEMATOCRIT 47.6 % (37.0-47.0); LYMPH # 1.4 10*3/uL (1.3-4.4); LYMPH % 22.9 % (27.0-41.0); MEAN CORPUSCULAR HGB 33.7 pg (27.0-31.0); MEAN PLATELET VOLUME 9.5 fl (9.6-12.3); MONO # 0.5 10*3/uL (0.1-1.0); MONO % 7.6 % (3.0-9.0); NEUT # 3.9 10*3/uL (2.3-7.9); NEUT % 66.8 % (47.0-73.0); PLATELET COUNT AUTOMATED 253 10*3/uL (130-400); RED BLOOD COUNT 4.81 10*6/uL (4.10-5.10); RED CELL DISTRI WIDTH 12.4 % (0-14.5); WHITE BLOOD COUNT 5.9 10*3/uL (4.8-10.8)
[2022-07-01 07:51] LABS: ALKALINE PHOSPHATASE 77 U/L (46-116); BUN 6 mg/dl (9-23); CHLORIDE 104 mmol/L (98-107); POTASSIUM 4.6 mmol/L (3.4-5.1); SGPT/ALT 13 U/L (10-49); TOTAL PROTEIN 7.2 gm/dL (6.0-8.0)
[2022-07-01 08:45] LABS: BILIRUBIN Negative (Negative); BLOOD Negative (Negative); CLARITY Clear (Clear); COLOR Yellow (Yellow); GLUCOSE Negative (Negative); KETONE Trace (Negative); LEUKO ESTERASE Negative (Negative); NITRITE Negative (Negative); PH 5.5 (4.5-8.0); UROBILINOGEN 0.2 E.U./dl (0.0-1.0)
[2022-07-01 08:52] VITALS: BP 134/80
[2022-07-01 09:19] LABS: BACTERIA 1+; EPITHELIAL CELLS 16-20
[2022-07-01 09:34] LABS: URINE AMPHETAMINES Negative (1000ng/ml); URINE BARBITURATES Negative (200ng/ml); URINE BENZODIAZEPINES Negative (200ng/ml); URINE CANNABINOIDS (THC) Positive (50ng/ml); URINE COCAINE Negative (300ng/ml); URINE METHADONE Negative (300ng/ml); URINE OPIATES Negative (300ng/ml); URINE PHENCYCLIDINE Negative (25ng/ml)
== END 2022-07-01 12:31 | disposition home or self-care (01) ==
LOC: ED 07:05
PROVIDERS: Emergency Medicine
DX: R00.2 Palpitations (principal); I10 Essential (primary) hypertension; Z90.89 Acquired absence of other organs; Z98.51 Tubal ligation status; Z88.0 Allergy status to penicillin

== ENCOUNTER 2024-08-10 04:07 | Emergency (ER) | payer BC ==
[~2024-08-10] VITALS: Ht 162.5 cm; Wt 68.0 kg
[2024-08-10 04:27] VITALS: BP 136/89
[2024-08-10] MEDS ORDERED: HYDROCODONE-AC1 EAC1 PO (06:08)
[2024-08-10] MEDS ORDERED: Acetaminophen/Hydrocodone 5 MG/325 MG TABLET PO ONE (06:10)
== END 2024-08-10 06:11 | disposition home or self-care (01) ==
LOC: ED 04:07
DX: S52.325A Nondisplaced transverse fracture of shaft of left radius, initial encounter for closed fracture (principal); F17.200 Nicotine dependence, unspecified, uncomplicated; Z79.899 Other long term (current) drug therapy; Z88.0 Allergy status to penicillin; Z98.51 Tubal ligation status; W01.0XXA Fall on same level from slipping, tripping and stumbling without subsequent striking against object, initial encounter; Y93.89 Activity, other specified; Y92.89 Other specified places as the place of occurrence of the external cause; Y99.8 Other external cause status

== ENCOUNTER → 2024-08-19 | Outpatient (CLI) | payer BC ==
[~2024-08-19] MED LIST changes: +HYDROCODONE-AC1 EAC1 PO
== END | disposition home or self-care (01) ==
LOC: ORTHO 02:20
PROVIDERS: ATTEND Orthopaedic Surgery
DX: S52.532D Colles' fracture of left radius, subsequent encounter for closed fracture with routine healing (principal); X58.XXXD Exposure to other specified factors, subsequent encounter

== ENCOUNTER → 2024-08-26 | Outpatient (CLI) | payer BC | END | disposition home or self-care (01) | LOC: ORTHO 01:13 | PROVIDERS: ATTEND Orthopaedic Surgery | DX: S52.532D Colles' fracture of left radius, subsequent encounter for closed fracture with routine healing (principal); X58.XXXD Exposure to other specified factors, subsequent encounter ==

== ENCOUNTER → 2024-09-02 | Outpatient (CLI) | payer BC | END | disposition home or self-care (01) | LOC: ORTHO 00:29 | PROVIDERS: ATTEND Orthopaedic Surgery | DX: S52.532D Colles' fracture of left radius, subsequent encounter for closed fracture with routine healing (principal); M18.12 Unilateral primary osteoarthritis of first carpometacarpal joint, left hand; X58.XXXD Exposure to other specified factors, subsequent encounter ==

== ENCOUNTER → 2024-09-09 | Outpatient (CLI) | payer BC | END | disposition home or self-care (01) | LOC: ORTHO 00:54 | PROVIDERS: ATTEND Orthopaedic Surgery | DX: S52.532D Colles' fracture of left radius, subsequent encounter for closed fracture with routine healing (principal); M19.032 Primary osteoarthritis, left wrist; X58.XXXD Exposure to other specified factors, subsequent encounter ==

== ENCOUNTER → 2024-09-23 | Outpatient (CLI) | payer BC | END | disposition home or self-care (01) | LOC: ORTHO 00:17 | PROVIDERS: ATTEND Orthopaedic Surgery | DX: S52.532D Colles' fracture of left radius, subsequent encounter for closed fracture with routine healing (principal); X58.XXXD Exposure to other specified factors, subsequent encounter ==

== ENCOUNTER → 2025-02-22 | Emergency (ER) | payer BC ==
[~2025-02-22] VITALS: Ht 162.5 cm; Wt 68.0 kg
[~2025-02-22] MED LIST changes: +CARVEDILOL6.25 MG PO; +METOPROLOL SUCC25 M2 PO; +PROPRANOLOL HC160 MG PO
[2025-02-22 11:42] LABS: BASO # 0.1 10*3/uL (0.0-0.1); BASO % 0.8 % (0.0-1.0); EOS # 0.0 10*3/uL (0.0-0.4); EOS % 0.5 % (1.0-4.0); MEAN CELL VOLUME 102.2 fl (81.0-99.0); MEAN CORPUSCULAR HGB 34.7 pg (27.0-31.0); MEAN PLATELET VOLUME 10.3 fl (9.6-12.3); MONO # 0.5 10*3/uL (0.1-1.0); MONO % 7.2 % (3.0-9.0); NEUT # 4.7 10*3/uL (2.3-7.9); NEUT % 71.3 % (47.0-73.0); NUCLEATED RED BLOOD CELL 0.0 % (0.0-0.0); NUCLEATED RED BLOOD CELL 0.0 10*3/uL (0.0-0.0); PLATELET COUNT AUTOMATED 253 10*3/uL (130-400); RED CELL DISTRI WIDTH 12.2 % (0-14.5)
[2025-02-22 12:17] LABS: BUN 7 mg/dl (9-23); CPK 51 U/L (34-171)
[2025-02-22 13:29] VITALS: BP 144/93
== END ==
LOC: ED 10:51
PROVIDERS: Emergency Medicine
DX: I10 Essential (primary) hypertension (principal); J18.9 Pneumonia, unspecified organism; F17.210 Nicotine dependence, cigarettes, uncomplicated; Z88.0 Allergy status to penicillin; Z90.710 Acquired absence of both cervix and uterus; Z20.822 Contact with and (suspected) exposure to COVID-19